=== PATIENT | female | born 1955 | race Hispanic/Latino ===

== ENCOUNTER 2017-09-04 09:45 | Day surgery (SDC) | payer MEDICARE, OTHER ==
[2017-09-01 14:23] VITALS: BMI 21.9
[2017-09-04] MEDS ORDERED: methylPREDNISolone Depo 80 mg/ml Inj ONE (11:32)
[2017-09-04] MEDS ORDERED: Bupivacaine HCl 0.25% PF (30 ml) Inj ONE (11:32)
[2017-09-04] MEDS ORDERED: Iohexol 300 10 ML ONE (11:33)
[2017-09-04] MEDS ORDERED: Midazolam 2 MG/2 ML VIAL ONE (11:52)
[2017-09-04] MEDS ORDERED: Propofol 10 mg/ml Inj (20 ML) ONE (11:53)
[2017-09-04] MEDS ORDERED: Lactated Ringer's 1,000 ML IV ONE (12:25)
[2017-09-04] MEDS ORDERED: Lidocaine 1% Inj (20ml) IJ ONE (12:33)
[2017-09-04] MEDS ORDERED: Lactated Ringer's 1,000 ML IV SCH (13:15)
[2017-09-04 13:46] VITALS: RESP 18
[2017-09-04 14:38] VITALS: BP 123/45; PULSE 55; TEMP 97.7; O2SAT 99
--- NOTE | 2017-09-04 17:49 | RAD ---
PROCEDURE: Intraoperative Fluoroscopy. HISTORY: EPIDURAL FINDINGS: Fluoroscopic assistance was provided for lumbar epidural. Please refer to the operative report from [facility]. Total fluoroscopic time (continuous mode) utilized during the procedure (seconds) 22.9. Total exam DLP: (mGy) 3.89
--- NOTE | 2017-09-04 23:09 | OP ---
PROCEDURE DATE: 09/04/2017 PREOPERATIVE DIAGNOSIS: Lumbar spondylosis. POSTOPERATIVE DIAGNOSIS: Lumbar spondylosis. PROCEDURE: Left L5-S1 transforaminal epidural steroid injection and bilateral sacroiliac joint steroid injection. SURGEON: James Oro MD TYPE OF ANESTHESIA: Monitored anesthesia care. ANESTHESIA ADMINISTERED BY: Dr. Rivera. COMPLICATIONS: None. SPECIMEN: None. DESCRIPTION OF PROCEDURE: As follows: After we had discussion of the procedure with the patient including its risks, benefits, alternatives, outcome data, possibility of no effect or increased pain, the patient consented to the procedure. She denies any recent infection, bleeding tendencies, or being on anticoagulants, the decision was then made to proceed to the OR. The patient was placed on the fluoroscopy table in a prone position with two pillows underneath her abdomen. The back was prepped and draped in the usual sterile fashion, and a sterile technique was adhered to during the entire procedure. The L5 vertebral levels were first identified in the anteroposterior view. Angulation towards the left at approximately 25 degrees was used to maximize the visualization of the left L5 pedicle. The skin overlying the 6 o'clock position of the pedicle was then infiltrated with 1% lidocaine using 25-gauge needle. Subsequently, a 22-gauge 3.5-inch spinal needle was incrementally advanced under fluoroscopic guidance until the tip of needle walked into the intervertebral foramen. After satisfactory positioning of the needle, approximately 0.5 mL of Isovue contrast was injected showing appropriate spread. At this point, approximately 3 mL of 0.25% Marcaine and Depo-Medrol mixture were injected. The needle was then removed. Then bilateral sacroiliac joints were visualized on the anteroposterior view. The target is at the inferior pole of the posterior opening of the sacroiliac joint. The procedure was first performed on the right side. The skin overlying the target area was then infiltrated with 1% lidocaine using 25-gauge needle. Subsequently, a 22-gauge 3.5-inch spinal needle was incrementally advanced under fluoroscopic guidance until the tip of needle walked into the joint capsule. This was confirmed by injecting approximately 0.5 mL of Isovue contrast. The contrast was seen spread up the right sacroiliac joint. After appropriate placement, approximately 3 mL of 0.25% Marcaine and Depo-Medrol mixture was injected. The needle was then removed and a same exact procedure was performed on the contralateral left side using the same medications and techniques. At the end of the case, the patient's back was cleaned and dried and bandages were applied. The patient was then transferred to the recovery area in good condition without any signs of B2B ACCOUNT EXECUTIVE toxicity or any neurological deficit. She will be following in the office in approximately two to three weeks. En-Matty Oro MD
== END 2017-09-04 15:10 | disposition home or self-care (01) ==
LOC: H.OPSURG 09:45
PROVIDERS: ATTEND Anesthesiology
DX: M46.1 Sacroiliitis, not elsewhere classified (principal); E03.9 Hypothyroidism, unspecified; I10 Essential (primary) hypertension
CPT/HCPCS: 64483; G0259; J1040; J2250; J2270; J2704; J3010; J7120; Q9967

== ENCOUNTER 2017-10-14 09:09 | Day surgery (SDC) | payer MEDICARE, OTHER ==
[2017-09-01 14:23] VITALS: BMI 21.9
[2017-10-14] MEDS ORDERED: Lactated Ringer's 1,000 ML IV ONE (09:40)
[2017-10-14] MEDS ORDERED: methylPREDNISolone Depo 80 mg/ml Inj ONE (09:41)
[2017-10-14] MEDS ORDERED: Bupivacaine HCl 0.25% PF (30 ml) Inj ONE (09:42)
[2017-10-14] MEDS ORDERED: Iohexol 300 10 ML ONE (09:42)
[2017-10-14] MEDS ORDERED: Lidocaine 2% MPF (5 ml) Inj ONE (09:46)
[2017-10-14 10:05] VITALS: RESP 18
[2017-10-14] MEDS ORDERED: Propofol 10 mg/ml Inj (20 ML) ONE ×2 (10:46→10:53)
[2017-10-14] MEDS: HYDROmorphone 0.5 mg/0.5 ml ISec IVP PRN ×2 (11:20→11:50)
[2017-10-14] MEDS ORDERED: HYDROmorphone 1 mg/ml ISec ONE ×2 (11:30→11:55)
[2017-10-14] MEDS ORDERED: Oxycodone/Acetaminophen 5/325 mg Tab PO PRN (12:38)
[2017-10-14 12:54] VITALS: BP 155/65; PULSE 56; TEMP 97
[2017-10-14 13:17] VITALS: O2SAT 96
--- NOTE | 2017-10-14 22:21 | OP ---
Copied To: James Oro MD Attending MD: James Oro MD PROCEDURE DATE: 10/14/2017 PREOPERATIVE DIAGNOSES: Lumbar radiculopathy and sacroiliitis. POSTOPERATIVE DIAGNOSES: Lumbar radiculopathy and sacroiliitis. PROCEDURES: Left L4-L5 and L5-S1 transforaminal epidural steroid injection and left sacroiliac joint steroid injection. ANESTHESIOLOGIST: Carlin Frey DO SURGEON: James Oro MD TYPE OF ANESTHESIA: Monitored anesthesia care. COMPLICATIONS: None. SPECIMEN: None. DESCRIPTION OF PROCEDURE: As follows: After we had discussion of the procedure with the patient including its risks, benefits, alternatives, outcome data, and possibility of no effect or increased pain, the patient consented to the procedure. She denied any recent infection, bleeding tendencies, or being on anticoagulants. Decision was then made to proceed to the OR. The patient was placed on the fluoroscopy table in a prone position with two pillows underneath her abdomen. The back was prepped and draped in the usual sterile fashion, and a sterile technique was adhered to during the entire procedure. The L4 and L5 vertebral levels were first identified in the anteroposterior view. Angulation towards the left at approximately 20 degrees was used to maximize the visualization of the left L4 and L5 pedicles. The skin overlying the 6 o'clock position of both pedicles was then infiltrated with 1% lidocaine using 25-gauge needle. Subsequently, a 22-gauge 3-1/2-inch spinal needle was then incrementally advanced under fluoroscopic guidance until the tip of needle walked into the intervertebral foramen. After satisfactory positioning of both needles, approximately 0.5 mL of Isovue contrast was injected showing appropriate epidural nerve root spread without any signs of CSF or intravenous involvement. At this point, approximately 3 mL of 0.25% Marcaine and Depo-Medrol mixture was injected. The needle was then removed. Then, the left sacroiliac joint was visualized in the anteroposterior view. The target of the procedure is at the posterior opening of the inferior pole of the left sacroiliac joint. The skin overlying this area was then infiltrated with 1% lidocaine using 25-gauge needle. Subsequently, a 22-gauge 3-1/2-inch spinal needle was then incrementally until the tip of the needle walked into the joint capsule. This was confirmed by injecting approximately 0.5 mL of Isovue contrast. After appropriate placement of the needle, approximately 3 mL of 0.25% Marcaine and Depo-Medrol mixture was injected. The needle was then removed. The patient's back was cleaned and dried, and bandages were applied. The patient was then transferred to the recovery area in good condition without any signs of CORRECTIONAL OFFICER CHIEF toxicity or any neurological deficit. She will be following in the office in approximately two to four weeks. En-Matty Oro MD
== END 2017-10-14 13:30 | disposition home or self-care (01) ==
LOC: H.OPSURG 09:09
PROVIDERS: ATTEND Anesthesiology
DX: M54.16 Radiculopathy, lumbar region (principal); E03.9 Hypothyroidism, unspecified; E11.9 Type 2 diabetes mellitus without complications; I10 Essential (primary) hypertension; K21.9 Gastro-esophageal reflux disease without esophagitis; D64.9 Anemia, unspecified; M46.1 Sacroiliitis, not elsewhere classified
CPT/HCPCS: 64483; 64484; 82948; J1040; J1170; J2001; J2704; J7120; Q9967

== ENCOUNTER 2017-12-04 06:42 | Day surgery (SDC) | payer MEDICARE, OTHER ==
[2017-12-02 09:05] VITALS: BMI 21.6
[2017-12-04] MEDS ORDERED: Lactated Ringer's 1,000 ML IV ONE (08:40)
[2017-12-04] MEDS ORDERED: Propofol 10 mg/ml Inj (20 ML) ONE ×2 (08:43→08:51)
[2017-12-04] MEDS ORDERED: methylPREDNISolone Depo 80 mg/ml Inj IM ONE (08:48)
[2017-12-04] MEDS ORDERED: Lidocaine 2% MPF (5 ml) Inj INJ ONE (08:48)
[2017-12-04] MEDS ORDERED: Bupivacaine HCl 0.25% PF (30 ml) Inj IJ ONE (08:48)
[2017-12-04] MEDS ORDERED: Iohexol 300 10 ML IJ ONE (08:48)
[2017-12-04] MEDS ORDERED: MethylPREDNISolone Depo 40 mg/ml Inj ONE (09:13)
[2017-12-04] MEDS ORDERED: Lidocaine 2% MPF (5 ml) Inj ONE (09:14)
[2017-12-04] MEDS ORDERED: Bupivacaine HCl 0.25% PF (30 ml) Inj ONE (09:14)
[2017-12-04] MEDS ORDERED: Iohexol 300 10 ML ONE (09:15)
[2017-12-04] MEDS ORDERED: Lactated Ringer's 1,000 ML IV SCH (09:15)
[2017-12-04 09:35] VITALS: RESP 18
[2017-12-04 10:20] VITALS: TEMP 97.6
[2017-12-04 11:22] VITALS: BP 148/58; PULSE 51; O2SAT 99
--- NOTE | 2017-12-04 12:11 | RAD ---
Date of service: 12/04/2017 PROCEDURE: Fluoroscopy up to 1 hr. HISTORY: PAIN MANAGEMENT COMPARISON: None TECHNIQUE: Standard protocol for this study/examination. FINDINGS: Total fluoroscopic time (continuous mode) utilized during the procedure 36.1 (seconds). Total exam DLP: 6.03 (mGy). IMPRESSION: Less than 1 hr fluoroscopic assistance provided during performance of the procedure.
--- NOTE | 2017-12-04 20:36 | OP ---
PROCEDURE DATE: 12/04/2017 PREOPERATIVE DIAGNOSIS: Lumbar radiculopathy. POSTOPERATIVE DIAGNOSIS: Lumbar radiculopathy. PROCEDURE: Left L3-4, L4-5, L5-S1 transforaminal epidural steroid injection. SURGEON: James Oro MD. ANESTHESIOLOGIST: Live Walton MD. ANESTHESIA TYPE: Monitored anesthesia care. COMPLICATIONS: None. SPECIMEN: None. DESCRIPTION OF PROCEDURE: After we had a discussion of the procedure with the patient including its risks, benefits, alternatives, outcome data, and possibility of no effect or increased pain, the patient consented to the procedure. She denies any recent infection, bleeding tendencies or being on anticoagulants. A decision was then made to proceed to the OR. The patient was placed on the fluoroscopy table in a prone position with two pillows underneath her abdomen. The back was prepped and draped in the usual sterile fashion. A sterile technique was adhered to during the entire procedure. The L3, L4, and L5 vertebral levels were first identified in the anteroposterior view. Angulation towards the left at approximately 20 degrees was used to maximize the visualization of the left L3, L4, and L5 pedicles. The skin overlying the 6 o'clock position of all three pedicles was then infiltrated with 1% lidocaine using 25 gauge needle. Subsequently, a 22-gauge 3.5-inch spinal needle was then incrementally advanced under fluoroscopic guidance until tip of the needle walked into the intervertebral foramen at all three levels. After satisfactory positioning of all three needles, approximately 0.5 mL Isovue contrast was injected showing appropriate epidural nerve root spread without any signs of GARMENT MANUFACTURING SUPERVISOR or intravenous . After appropriate placement of all Tuohy needles, approximately 3 mL of 0.45% Marcaine and Depo-Medrol mixture was injected. The needle was then removed and the patient's back was cleaned and dry bandages were applied. The patient was then transported to recovery area in good conditions without any signs of GARMENT MANUFACTURING SUPERVISOR toxicity or any neurological deficit. She will be following up in office in approximately two to four weeks. James Oro MD
== END 2017-12-04 11:49 | disposition home or self-care (01) ==
LOC: H.OPSURG 06:42
PROVIDERS: ATTEND Anesthesiology
DX: M54.16 Radiculopathy, lumbar region (principal); M19.90 Unspecified osteoarthritis, unspecified site; I25.10 Atherosclerotic heart disease of native coronary artery without angina pectoris; I10 Essential (primary) hypertension; I27.20 Pulmonary hypertension, unspecified; K21.9 Gastro-esophageal reflux disease without esophagitis
CPT/HCPCS: 64483; 64484; 77003; J1030; J1040; J1170; J2704; J7120; Q9967

== ENCOUNTER 2018-01-01 10:11 | Day surgery (SDC) | payer MEDICARE, OTHER ==
[2018-01-01] MEDS ORDERED: methylPREDNISolone Depo 80 mg/ml Inj ONE (10:48)
[2018-01-01] MEDS ORDERED: Iohexol 300 10 ML ONE (10:48)
[2018-01-01] MEDS ORDERED: Propofol 10 mg/ml Inj (20 ML) ONE (10:58)
[2018-01-01] MEDS ORDERED: Midazolam 2 MG/2 ML VIAL ONE ×2 (10:58→11:25)
[2018-01-01 11:09] VITALS: BMI 22.3
[2018-01-01] MEDS ORDERED: Lactated Ringer's 1,000 ML IV ONE (11:20)
[2018-01-01] MEDS ORDERED: Iohexol 300 10 ML IJ ONE (11:25)
[2018-01-01] MEDS ORDERED: MethylPREDNISolone Depo 40 mg/ml Inj IM ONE (11:25)
[2018-01-01] MEDS ORDERED: HYDROmorphone 0.5 mg/0.5 ml ISec IVP PRN (11:37)
[2018-01-01] MEDS ORDERED: Lactated Ringer's 1,000 ML IV SCH (11:45)
[2018-01-01 13:37] VITALS: TEMP 97.9
[2018-01-01 13:40] VITALS: O2SAT 99
[2018-01-01 14:13] VITALS: BP 133/65; PULSE 58; RESP 17
--- NOTE | 2018-01-02 01:30 | OP ---
PROCEDURE DATE: 01/01/2018 PREOPERATIVE DIAGNOSIS: Lumbar radiculopathy. POSTOPERATIVE DIAGNOSIS: Lumbar radiculopathy. PROCEDURE: L5-S1 interlaminar epidural steroid injection. ANESTHESIOLOGIST: Nikki Ruvalcaba MD SURGEON: James Oro MD ANESTHESIA TYPE: Monitored anesthesia care. COMPLICATIONS: None. SPECIMEN: None. DESCRIPTION OF PROCEDURE: Procedure is as follows. After we had a discussion of the procedure with the patient including its risks, benefits, alternatives, outcome data, and possibility of no effect or increased pain, the patient consented to the procedure. She denied any recent infection, bleeding tendencies, or being on anticoagulants. A decision was then made to proceed to the OR. The patient was placed on the fluoroscopy table in a prone position with two pillows underneath her abdomen. The back was prepped and draped in the usual sterile fashion. A sterile technique was adhered to during the entire procedure. The L5-S1 interlaminar space was first identified in the anteroposterior view. Slight cephalad angle was used to maximize the opening to this area. The skin overlying this area was then infiltrated with 1% lidocaine using a 25-gauge needle. Subsequently, a 20-gauge 3.5-inch Tuohy needle was incrementally advanced under fluoroscopic guidance using loss of resistance technique until epidural space was reached at approximately 6 cm depth. This was confirmed by a lateral fluoroscopy view. A contrast was injected to show appropriate epidural spread without any signs of CSF or intravenous uptake. At this point, approximately 5 mL of normal saline and Depo-Medrol mixture was gradually injected. The needle was removed. The patient's back was cleaned, and dry bandages were applied. The patient was then transferred to recovery area in good condition without any signs of AGENCY SALES REPRESENTATIVE toxicity or any neurological deficit. She will be following in our office in approximately two to four weeks. James Oro MD
--- NOTE | 2018-01-06 15:27 | RAD ---
Date of service: 01/01/2018 PROCEDURE: Intraoperative Fluoroscopy. HISTORY: PAIN MANAGEMENT FINDINGS: Fluoroscopic assistance was provided.. Fluoroscopy time = 17.5 sec. Radiation dose = 6.92 mGy. Please refer to the operative report from [facility].
== END 2018-01-01 14:12 | disposition home or self-care (01) ==
LOC: H.OPSURG 10:11
PROVIDERS: ATTEND Anesthesiology
DX: M47.816 Spondylosis without myelopathy or radiculopathy, lumbar region (principal); M19.90 Unspecified osteoarthritis, unspecified site; I10 Essential (primary) hypertension; E03.9 Hypothyroidism, unspecified; K21.9 Gastro-esophageal reflux disease without esophagitis
CPT/HCPCS: 62323; J1030; J1040; J1170; J2250; J2704; J3010; J7120; Q9967

== ENCOUNTER 2018-02-26 07:08 | Day surgery (SDC) | payer MEDICARE, OTHER ==
[2018-02-01 12:21] VITALS: BMI 22.3
[2018-02-26] MEDS ORDERED: Lactated Ringer's 1,000 ML IV ONE (07:54)
[2018-02-26 08:22] VITALS: RESP 18
[2018-02-26] MEDS ORDERED: methylPREDNISolone Depo 80 mg/ml Inj ONE (09:56)
[2018-02-26] MEDS ORDERED: Lidocaine 1% Inj (20ml) ONE (09:57)
[2018-02-26] MEDS ORDERED: Bupivacaine HCl 0.5% PF (30 ml) Inj ONE (09:57)
[2018-02-26] MEDS ORDERED: Iohexol 300 10 ML ONE (09:58)
[2018-02-26] MEDS ORDERED: Propofol 10 mg/ml Inj (20 ML) ONE (10:03)
[2018-02-26] MEDS ORDERED: methylPREDNISolone Depo 80 mg/ml Inj IM ONE (10:06)
[2018-02-26] MEDS ORDERED: Lidocaine 1% Inj (20ml) IJ ONE (10:06)
[2018-02-26] MEDS ORDERED: Bupivacaine HCl 0.5% PF (10 ml) Inj IJ ONE (10:06)
[2018-02-26] MEDS ORDERED: Iohexol 300 10 ML IJ ONE (10:06)
[2018-02-26] MEDS ORDERED: HYDROmorphone 0.5 mg/0.5 ml ISec ONE (10:23)
[2018-02-26] MEDS ORDERED: Lactated Ringer's 500 ML IV SCH (10:30)
[2018-02-26 10:43] VITALS: O2SAT 100
[2018-02-26 12:20] VITALS: PULSE 75
[2018-02-26 12:52] VITALS: BP 148/83; TEMP 98.7
--- NOTE | 2018-02-26 14:35 | RAD ---
Date of service: 02/26/2018 PROCEDURE: Intraoperative Fluoroscopy. HISTORY: PAIN MANAGEMENT FINDINGS: Fluoroscopic assistance was provided. Fluoroscopy time = 26.5 sec. Radiation dose = 3.52 mGy. Please refer to the operative report from [facility].
--- NOTE | 2018-02-26 22:02 | OP ---
PROCEDURE DATE: 02/26/2018 PREOPERATIVE DIAGNOSIS: Bilateral sacroiliitis. POSTOPERATIVE DIAGNOSIS: Bilateral sacroiliitis. PROCEDURE: Bilateral sacroiliac joint steroid injection. ANESTHESIOLOGIST: Bulmaro Acuña MD SURGEON: James Oro MD ANESTHESIA TYPE: Monitored anesthesia care. COMPLICATIONS: None. SPECIMEN: None. DESCRIPTION OF PROCEDURE: Procedure is as follows. After we had a discussion of the procedure with the patient including its risks, benefits, alternatives, outcome data, possibility of no effect or increased pain, the patient consented to the procedure. She denies any recent infection, bleeding tendencies or being on anticoagulants. Decision was then made to proceed to the OR. The patient was placed on the fluoroscopy table in a prone position with two pillows underneath her abdomen. The back was prepped and draped in the usual sterile fashion, and a sterile technique was adhered to during the entire procedure. The left sacroiliac joint was first visualized on the anteroposterior view. The target was at the inferior border of the posterior opening of the sacroiliac joint on the left. The skin overlying the target area was then infiltrated with 1% lidocaine using 25-gauge needle. Subsequently, a 22-gauge 3.5-inch spinal needle was incrementally advanced under fluoroscopic guidance until tip of the needle walked into the joint capsule. After satisfactory positioning of the needle, approximately 0.5 mL of Isovue contrast was injected showing appropriate spread. The contrast was seen spread up the joint line. At this point, approximately 5 mL of 0.25% Marcaine and Depo-Medrol mixture was injected intra-articularly and also periarticularly. The needle was then removed and same exact procedure was performed on the contralateral right side using the same medications and techniques. At the end of the case, the patient's back was cleaned and dry bandage was applied. The patient was then transferred to the recovery area in good condition without any signs of TRAIN BRAKER toxicity or any neurological deficit. She will be following in the office in approximately two to four weeks. James Oro MD
== END 2018-02-26 13:08 | disposition home or self-care (01) ==
LOC: H.OPSURG 07:08
PROVIDERS: ATTEND Anesthesiology
DX: M54.16 Radiculopathy, lumbar region (principal); I10 Essential (primary) hypertension; K21.9 Gastro-esophageal reflux disease without esophagitis
CPT/HCPCS: G0260; J1040; J1170; J2704; J7120; Q9967